=== PATIENT | male | born 2000 | race Caucasian/White ===

== ENCOUNTER 2020-05-24 11:41 | Emergency (ER) | payer SELFPAY ==
[2020-05-24 11:47] VITALS: BP 117/67; PULSE 93; RESP 18; TEMP 37.5; O2SAT 100; BMI 18.3
--- NOTE | 2020-05-24 12:35 | ED.DENTAL ---
HPI - Dental/Oral General Chief complaint: Dental/Oral Stated complaint: dental pain Time Seen by Provider: 05/24/20 12:35 Source: patient Mode of arrival: ambulatory Limitations: language barrier (interpretor used) History of Present Illness HPI Narrative: Pt states 3 days of left sided mouth/dental pain and swelling of left cheek, denies fevers, has no dentist. States pain isn't bad enough to have used any analgesics. Related Data Previous Rx's Medication Instructions Recorded penicillin V potassium 500 mg PO QID #40 tab 05/24/20 Allergies Allergy/AdvReac Type Severity Reaction Status Date / Time No Known Allergies Allergy Verified 05/24/20 11:50 Review of Systems Review of Systems: see HPI [facility] Past Medical History Attestation statement: The following information was validated with the patient. Medical History (Updated 05/24/20 @ 12:43 by KATLIN Simmons) Patient denies medical problems Social History Social History Advance Directives: No Advance Directives Information Provided: No Physical Exam Vital Signs: Vital Signs: Last Vital Signs Temp 99.5 F 05/24/20 11:47 Pulse 93 05/24/20 11:47 Resp 18 05/24/20 11:47 BP 117/67 05/24/20 11:47 Pulse Ox 100 05/24/20 11:47 Body Mass Index 18.3 Const: General: cooperative, healthy appearing, comfortable, no acute distress and well developed Nutritional Appearance: average body habitus Orientation/consciousness: patient oriented x3 Limitations: language barrier (strategic partner development manager used) HENMT: Head: Yes normal to inspection, Yes normocephalic and Yes atraumatic Face and sinus: No face symmetric (swelling of left lower cheek) Mouth: Normal oral and palatal mucosa present Teeth and gingiva: abnormal tooth and associated gingiva ( ) lower left second molar Eyes: General: appearance normal, both eyes and all related structures Neck: Neck: Yes normal visual inspection Resp: Effort & Inspection: normal respiratory effort and able to speak in complete sentences Neuro: General: patient oriented x3 Discharge Plan Discharge Clinical Impression: Dental abscess Patient Disposition: Home, Self-Care Instructions: Dental Abscess (ED) Additional Instructions: Please be sure to follow up with a dentist, I have provided you with a list. Prescriptions: New penicillin V potassium 500 mg tablet 500 mg PO QID Qty: 40 RF: 0
== END 2020-05-24 12:55 | disposition home or self-care (01) ==
PROVIDERS: Emergency Provider Emergency Medicine Emergency Medical Services
DX: K04.7 Periapical abscess without sinus (principal)
CPT/HCPCS: 99283